=== PATIENT | male | born 1950 | race Caucasian/White ===

== ENCOUNTER 2020-10-31 15:30 | Emergency (ER) | payer OTHER ==
[~2020-10-31] VITALS: Ht 172.7 cm; Wt 87.7 kg
[2020-10-31 15:40] VITALS: Ht 172.7 cm; Wt 87.7 kg
[2020-10-31 15:54] VITALS: BP 119/80
[2020-10-31 16:28] LABS: BASOPHILS 0.4 % (0-2); HEMATOCRIT 43.2 % (42.0-54.0); HEMOGLOBIN 15.2 g/dL (13.5-17.5); IMMATURE GRANULOCYTES 0.1 % (0-5); LYMPHOCYTE ABS# 2.23 10x3/uL (1.32-3.57); LYMPHOCYTES 29.9 % (15-50); MCH 30.5 pg (26.0-34.0); MCHC 35.2 g/dL (31.0-37.0); MCV 86.7 fL (80.0-100.0); MEAN PLATELET VOLUME 10.1 fL (7.4-10.4); MONOCYTES 10.2 % (2-11); NEUTROPHIL ABS# 4.29 10x3/uL (1.78-5.38); NEUTROPHILS 57.4 % (40-80); PLATELET COUNT 211 10x3/uL (130-400); RBC 4.98 10x6/uL (4.20-6.10); RDW 12.4 % (11.5-14.5); WBC 7.5 10x3/uL (4.8-10.8)
[2020-10-31 16:38] LABS: CALC OSMOLALITY 286 mosm/kg (275-300); CALCIUM 8.7 mg/dL (8.5-10.1); CARBON DIOXIDE 28.1 mmol/L (21.0-32.0); CHLORIDE - SERUM 106 mmol/L (98-107); CREATININE - SERUM 1.1 mg/dL (0.6-1.3); GLUCOSE 122 mg/dL (74-106); POTASSIUM - SERUM 3.8 mmol/L (3.5-5.1); SODIUM 142 mmol/L (136-145); UREA NITROGEN 22 mg/dL (7-18); eGFR NON AFRICAN AMERICAN 71 mL/min (90-120)
[2020-10-31 16:44] LABS: APTT 28.2 SECONDS (22.8-39.4); INR 1.06 (0.85-1.17); PROTIME 12.7 SECONDS (11.6-15.0)
[2020-10-31 16:45] LABS: D-DIMER-QUANTITATIVE < 0.27 ug/mLFEU (0.20-0.54)
[2020-10-31 16:54] LABS: ALBUMIN 3.6 g/dL (3.4-5.0); ALKALINE PHOSPHATASE 65 U/L (30-120); ALT (SGPT) 29 U/L (10-68); BILIRUBIN - TOTAL 0.41 mg/dL (0.2-1.3); CKMB 0.5 U/L (0.0-3.6); CREATINE KINASE 58 UL (21-232); PROTEIN - SERUM 6.7 g/dL (6.4-8.2)
[2020-10-31 16:55] LABS: TROPONIN-I < 0.017 ng/mL (0.000-0.060)
== END 2020-10-31 18:26 | disposition home or self-care (01) ==
LOC: D.ER 15:30
PROVIDERS: Emergency Medicine
DX: R07.9 Chest pain, unspecified (principal); R73.9 Hyperglycemia, unspecified; R79.89 Other specified abnormal findings of blood chemistry